=== PATIENT | female | born 1985 | race Caucasian/White ===

== ENCOUNTER 2019-11-12 08:59 | Emergency (ER) | payer BC, OTHER ==
[2019-11-12] MEDS ORDERED: Lidocaine 1% with EPINEPHrine 1:100,000 10 ML MDV INJECT ONE (09:21)
[2019-11-12] MEDS ORDERED: Oxymetazoline 0.05% Nasal Spray 30 ML Bottle NAS ONE (09:22)
[2019-11-12] MEDS ORDERED: Lidocaine 1% with EPINEPHrine 1:100,000 20 ML MDV INJECT ONE (09:45)
--- NOTE | 2019-11-12 10:12 | EDM.PDOC ---
ED HPI GENERAL MEDICAL PROBLEM - General Chief Complaint: ENT Problem Stated Complaint: NOSE BLEED Time Seen by Provider: 11/12/19 09:16 Source of Information: Reports: Patient History Limitations: Reports: No Limitations - History of Present Illness INITIAL COMMENTS - FREE TEXT/NARRATIVE: The patient presents with a nose bleed. This started early this morning. She has no trauma to her nose. She does have allergies and she was feeling congested last night and did a effie pot treatment. She has a history of nose bleeds but never this bad. She has no cough or fever. She has no nausea, vomiting, chest pain, shortness of breath or abdominal pain. The bleeding started from the right nostril. Onset: Sudden Duration: Hour(s): Severity: Moderate Improves with: Reports: None Worsens with: Reports: None Associated Symptoms: Reports: No Other Symptoms - Related Data Allergies Allergy/AdvReac Type Severity Reaction Status Date / Time hydromorphone [From Dilaudid] Allergy Hives Verified 11/12/19 09:10 Home Meds: Home Meds Hydrochlorothiazide 1 tab PO DAILY 10/21/15 [History] Pantoprazole Sodium 40 mg PO DAILY 10/21/15 [History] Potassium Gluconate [Potassium] 99 mg PO DAILY 10/21/15 [History] Sertraline HCl 100 mg PO DAILY 10/21/15 [History] Spironolactone 1 tab PO DAILY 10/21/15 [History] desog-e.estradioL/e.estradioL [Kariva 28 Day] 1 tab PO BEDTIME 10/21/15 [History ] Furosemide [Lasix] 20 mg PO DAILY 11/12/19 [History] Losartan [Cozaar] 25 mg PO DAILY 11/12/19 [History] Norethindrone [Aygestin] 5 mg PO DAILY 11/12/19 [History] Past Medical History - Past Health History Medical/Surgical History: Denies Medical/Surgical History HEENT History: Reports: Impaired Vision, Sinusitis Other HEENT History: wears contacts, allegies Cardiovascular History: Reports: Hypertension Respiratory History: Reports: Asthma, Bronchitis, Recurrent Gastrointestinal History: Reports: GERD, Pancreatitis Psychiatric History: Reports: Anxiety Other Dermatologic History: dry skin - Infectious Disease History Infectious Disease History: Reports: Chicken Pox - Past Surgical History HEENT Surgical History: Reports: Naso-Sinus Surgery, Oral Surgery GI Surgical History: Reports: Cholecystectomy Social & Family History - Family History Family Medical History: Noncontributory GI: Reports: Cholelithiasis - Tobacco Use Smoking Status *Q: Never Smoker Second Hand Smoke Exposure: No - Caffeine Use Caffeine Use: Reports: Soda - Recreational Drug Use Recreational Drug Use: No ED ROS ENT - Review of Systems Review Of Systems: See Below Constitutional: Reports: No Symptoms HEENT: Reports: Nosebleed Respiratory: Reports: No Symptoms Cardiovascular: Reports: No Symptoms Endocrine: Reports: No Symptoms GI/Abdominal: Reports: No Symptoms : Reports: No Symptoms Musculoskeletal: Reports: No Symptoms ED EXAM, ENT - Physical Exam Exam: See Below Exam Limited By: No Limitations General Appearance: Alert, No Apparent Distress Ears: Normal External Exam Nose: Active Bleeding Mouth/Throat: Normal Inspection Head: Atraumatic, Normocephalic Neck: Normal Inspection Respiratory/Chest: No Respiratory Distress ED ENT PROCEDURES - Epistaxis Procedure Indication: Epistaxis Recent anticoagulants/antiplatlets: No Uncontrolled HTN: No Recent septal/nasal surgery: No Site of bleeding: Right Nare Clearing of clots: Patient Blew Nose Topical Meds: Phenylephrine (Lidocaine with epinephrine and TXA) Ice pack to area: No Chemical cautery: Silver Nitrate Topical Electrical cautery: Visible Bleeding Complications: No Course - Vital Signs Last Recorded V/S: Last Vital Signs Temp 97.8 F 11/12/19 09:10 Pulse 100 11/12/19 09:10 Resp 20 11/12/19 09:10 BP 139/115 H 11/12/19 09:10 Pulse Ox 94 L 11/12/19 09:10 - Orders/Labs/Meds Meds: Medications Discontinued Medications Generic Name Dose Route Start Last Admin Trade Name Oleg PRN Reason Stop Dose Admin Lidocaine/Epinephrine 10 ml 11/12/19 09:21 11/12/19 09:47 Xylocaine 1% With Epinephrine 1:100,000 INJECT 11/12/19 09:22 Not Given ONETIME ONE Lidocaine/Epinephrine 10 ml 11/12/19 09:45 11/12/19 09:46 Xylocaine 1% With Epinephrine 1:100,000 INJECT 11/12/19 09:46 10 ml ONETIME ONE Administration Oxymetazoline HCl 1 ml 11/12/19 09:22 11/12/19 09:34 Nasal Decongestant [place] MARA 11/12/19 09:23 3 sprays ONETIME ONE Administration Tranexamic Acid 1,000 mg 11/12/19 09:22 11/12/19 09:34 Cyklokapron IVPUSH 11/12/19 09:23 1,000 mg ONETIME ONE Administration Departure - Departure Time of Disposition: 10:55 Disposition: Home, Self-Care 01 Condition: Good Clinical Impression: Epistaxis - Discharge Information *PRESCRIPTION DRUG MONITORING PROGRAM REVIEWED*: Not Applicable *COPY OF PRESCRIPTION DRUG MONITORING REPORT IN PATIENT DIONNE: Not Applicable Referrals: Ayo Perea MD [Primary Care Provider] - Forms: ED Department Discharge Additional Instructions: Put antibiotic ointment, petroleum gauze or air in each nostril 2 times per day. Avoid blowing your nose. Please return if you are worse. Sepsis Event Note - Evaluation Sepsis Screening Result: No Definite Risk - Focused Exam Vital Signs: Vital Signs Temp Pulse Resp BP Pulse Ox 11/12/19 09:10 97.8 F 100 20 139/115 H 94 L Date Exam was Performed: 11/12/19 Time Exam was Performed: 10:51
[2019-11-12 11:06] VITALS: BP 113/48; PULSE 84
== END 2019-11-12 11:06 | disposition home or self-care (01) ==
LOC: JD.ED 08:59
DX: R04.0 Epistaxis (principal); J45.909 Unspecified asthma, uncomplicated; K21.9 Gastro-esophageal reflux disease without esophagitis; F41.9 Anxiety disorder, unspecified; I10 Essential (primary) hypertension; Z88.5 Allergy status to narcotic agent; Z79.899 Other long term (current) drug therapy
CPT/HCPCS: 30901; 99283; A9270